=== PATIENT | female | born 1985 | race Caucasian/White ===

== ENCOUNTER 2016-09-25 23:12 | Emergency (ER) | payer OTHER ==
[~2016-09-25] VITALS: Ht 152.4 cm; Wt 98.1 kg
[~2016-09-25 23:12] MED LIST: AMOX500T PO
[2016-09-25 23:18] VITALS: BP 129/86; PULSE 82; RESP 18; TEMP 98.7; O2SAT 100
[2016-09-26 00:50] VITALS: BP 119/70; PULSE 84; RESP 18; O2SAT 100
--- NOTE | 2016-09-26 01:07 | PD ---
HPI Chief Complaint: Abdominal Pain Time Seen by Provider: 00:54 Travel History International Travel<30 days: No Contact w/Intl Traveler<30days: No Traveled to known affect area: No History of Present Illness HPI The patient is a 31-year-old female that complains of left pelvic pain for 2-3 weeks. She found out that she is by home test and by the health department. Her last missed her period was August 01. The pain remains on the left side only and she denies any bleeding. She denies any fever. She is G4, P2, A1. PFSH Past Medical History Diminished Hearing: No Tetanus Vaccination: Unknown Influenza Vaccination: No ?: LMP: jul 28- : 4 Para: 2 Past Surgical History Oral Surgery: Yes (TONGUE SNIP) Social History Alcohol Use: Yes Tobacco Use: No Substance Use: No Allergies-Medications (Allergen,Severity, Reaction): Coded Allergies: Azithromycin (Verified Allergy, Unknown, THROAT SWELLS, 09/26/16) Darvocet-N 100 (Verified Allergy, Unknown, RASH, 09/26/16) Erythromycin (Verified Allergy, Unknown, THROAT SWELLS, 09/26/16) Latex (Verified Allergy, Unknown, SWELLING, 09/26/16) Lortab (Verified Allergy, Unknown, RASH, 09/26/16) Tessalon Perles (Verified Allergy, Unknown, THROAT SWELLS, 09/26/16) Toradol (Verified Allergy, Unknown, RASH, 09/26/16) Tramadol (Verified Allergy, Unknown, RASH, 09/26/16) Reported Meds & Prescriptions Reported Meds & Active Scripts Active Reported ( Vit-Ferrous Fumarate) 1 Tab Tab 1 Tab PO DAILY Review of Systems Except as stated in HPI: all other systems reviewed are Neg Physical Exam Narrative GENERAL: The patient is alert, oriented 3 and slight apparent distress with her left pelvic pain. Her vital signs show blood pressure 129/86 but are otherwise normal for . SKIN: Warm and dry. HEAD: Atraumatic. Normocephalic. EYES: Pupils equal and round. No scleral icterus. No injection or drainage. ENT: No nasal bleeding or discharge. Mucous membranes pink and moist. NECK: Trachea midline. No JVD. CARDIOVASCULAR: Regular rate and rhythm. No murmur appreciated. RESPIRATORY: No accessory muscle use. Clear to auscultation. Breath sounds equal bilaterally. GASTROINTESTINAL: Abdomen soft, with slight tenderness in the left pelvis to direct palpation, nondistended. Hepatic and splenic margins not palpable. No guarding or rebound is present. MUSCULOSKELETAL: No obvious deformities. No clubbing. No cyanosis. No edema. NEUROLOGICAL: Awake and alert. No obvious cranial nerve deficits. Motor grossly within normal limits. Normal speech. PSYCHIATRIC: Appropriate mood and affect; insight and judgment normal. Data Data Last Documented VS Vital Signs Date Time Temp Pulse Resp B/P Pulse Ox O2 Delivery O2 Flow Rate FiO2 09/26/16 03:10 16 09/26/16 03:10 82 140/69 98 Room Air 09/25/16 23:18 98.7 Orders Beta Hcg (Quant/Titer) (09/26/16 01:02) Complete Blood Count With Diff (09/26/16 01:02) Basic Metabolic Panel (Bmp) (09/26/16 01:02) Urinalysis - C+S If Indicated (09/26/16 01:02) Us Pelvis (Ques Preg/Ectopic) (09/26/16 ) Ed Urine Pregnancytest Poc (09/26/16 02:00) Labs Laboratory Tests Test 09/26/16 01:20 White Blood Count 10.6 TH/MM3 Red Blood Count 4.28 MIL/MM3 Hemoglobin 11.3 GM/DL Hematocrit 35.0 % Mean Corpuscular Volume 81.8 FL Mean Corpuscular Hemoglobin 26.4 PG Mean Corpuscular Hemoglobin 32.3 % Concent Red Cell Distribution Width 14.3 % Platelet Count 302 TH/MM3 Mean Platelet Volume 8.2 FL Neutrophils (%) (Auto) 69.6 % Lymphocytes (%) (Auto) 20.0 % Monocytes (%) (Auto) 7.8 % Eosinophils (%) (Auto) 1.1 % Basophils (%) (Auto) 1.5 % Neutrophils # (Auto) 7.4 TH/MM3 Lymphocytes # (Auto) 2.1 TH/MM3 Monocytes # (Auto) 0.8 TH/MM3 Eosinophils # (Auto) 0.1 TH/MM3 Basophils # (Auto) 0.2 TH/MM3 CBC Comment DIFF FINAL Differential Comment Sodium Level 139 MEQ/L Potassium Level 4.0 MEQ/L Chloride Level 103 MEQ/L Carbon Dioxide Level 25.6 MEQ/L Anion Gap 10 MEQ/L Blood Urea Nitrogen 8 MG/DL Creatinine 0.56 MG/DL Estimat Glomerular Filtration 128 ML/MIN Rate Random Glucose 82 MG/DL Calcium Level 8.1 MG/DL Human Chorionic Gonadotropin, 0[address]31 MIU/ML Quant MDM Medical Decision Making Medical Screen Exam Complete: Yes Emergency Medical Condition: Yes Medical Record Reviewed: Yes Interpretation(s) The scfoi-ju-gsee urine test is positive here in emergency department. We have also ordered a beta titer. It is now 0409 and the beta titer is 54,600. The basic metabolic profile shows a calcium 8.1 but is otherwise normal. The CBC is normal except for hemoglobin of 11.3. The ultrasound of the pelvis shows single viable intrauterine gestation with gestational age 8 weeks 4 days and heart rate of 174 bpm. No free fluid is present and the ovaries are normal. Differential Diagnosis Ectopic , ovarian cyst pain, intrauterine , anemia, ligament pain Narrative Course The patient has a normal intrauterine . The patient's pain may be ligament pain. She is given the results of her lab work and she should follow- up with her butt welder. Diagnosis Primary Impression: Intrauterine Additional Impression: Pain of round ligament affecting , antepartum Additional Instructions: Follow-up with your butt welder, this appears to be in normal intrauterine . It is possible he may have ligament pain as the cause of your slight pain on the left. The ovaries appear normal. Med/Other Pt SpecificInfo: No Change to Meds Disposition: 01 DISCHARGE HOME Condition: Stable Shay Winslow MD Sep 26, 2016 01:07
[2016-09-26] MEDS ORDERED: TRICTAB PO (01:21)
[2016-09-26 01:46] LABS: AUTOMATED NEUTROPHIL # 7.4 TH/MM3 (1.8-7.7); BASOPHIL # 0.2 TH/MM3 (0-0.2); BASOPHIL % 1.5 % (0.0-2.0); EOSINOPHIL # 0.1 TH/MM3 (0-0.4); EOSINOPHIL % 1.1 % (0.0-4.0); LYMPHOCYTE # 2.1 TH/MM3 (1.0-4.8); MEAN CELL VOLUME 81.8 FL (80.0-100.0); MEAN CORPUSCULAR HEMOGLOBIN 26.4 PG (27.0-34.0); MEAN CORPUSCULAR HGB CONC 32.3 % (32.0-36.0); MONO % 7.8 % (0.0-8.0); NEUT % 69.6 % (16.0-70.0); PLATELET COUNT 302 TH/MM3 (150-450); RED BLOOD COUNT 4.28 MIL/MM3 (4.00-5.30); RED CELL DISTRIBUTION WIDTH 14.3 % (11.6-17.2); WHITE BLOOD COUNT 10.6 TH/MM3 (4.0-11.0)
[2016-09-26 01:48] LABS: HEMO FLAGS DIFF FINAL
[2016-09-26 01:58] LABS: BICARBONATE 25.6 MEQ/L (21.0-32.0)
[2016-09-26 03:10] VITALS: BP 140/69; PULSE 82; RESP 16; O2SAT 98
--- NOTE | 2016-09-26 03:59 | RADHPO ---
EXAM DATE/TIME: 09/26/2016 02:59 [facility] COMPARISON: No previous studies available for comparison. INDICATIONS : Pelvic pain. LAB(S): Beta-hC MEDICAL HISTORY : . SURGICAL HISTORY : Tongue snip. ENCOUNTER: Initial ACUITY: 3 weeks PAIN SCORE: 6/10 LOCATION: Bilateral pelvis MEASUREMENTS: UTERUS: 10.9 x 7.6 x 6.2 cm ENDOMETRIAL STRIPE: 19 mm RIGHT OVARY: 2.6 x 2.8 x 1.6 cm LEFT OVARY: 2.9 x 3.4 x 1.6 cm FREE FLUID: No CROWN RUMP LENGTH: 2.0 cm = 8 WKS 4 DAYS FHR: 173 BPM FINDINGS: There is a gestational sac within the uterus containing a yolk sac and pole with an estimated g estational age of 8 weeks 4 days based on crown-rump length measurement and 8 weeks 0 days based on m bijan sac diameter. heart rate of 174 beats per minute. There is no free fluid. The ovaries are n ormal. CONCLUSION: 1. Single viable intrauterine gestation is noted as described above. Anuj Ragsdale MD on September 26, 2016 at 3:55 Board Certified Radiologist. This report was verified electronically.
[2016-09-26 04:37] VITALS: BP 121/60
== END 2016-09-26 04:36 | disposition home or self-care (01) ==
LOC: PHED 23:12
DX: O26.899 Other specified pregnancy related conditions, unspecified trimester (principal)
CPT/HCPCS: 76700; 80048; 84702; 84703; 85025

== ENCOUNTER 2017-01-01 14:20 | Emergency (ER) | payer OTHER, MEDICAID ==
[~2017-01-01 14:20] MED LIST changes: -AMOX500T PO; +TRICTAB PO
[2017-01-01 14:49] VITALS: BP 119/58; PULSE 78
[2017-01-01 15:07] VITALS: BP 112/52; PULSE 79
--- NOTE | 2017-01-01 15:18 | PD ---
HPI Chief Complaint Headache Date Seen: Jan 01, 2017 Travel History International Travel<30 Days: No Contact w/Intl Traveler<30Days: No History of Present Illness HPI Patient is a 31 year old at 21-6/7 weeks gestation who presents today for headache. The headache started 5 days ago and is located in the frontal region. It's described as throbbing. She typically gets migraine headaches that are located unilaterally behind her eye, however this headache feels different. She also typically has floaters and is unsure if her floaters now are the same or different than when she is having a migraine. She has also noted occasional swelling in her feet, hands, and face and lower abdominal pain when moving from side to side in bed. She denies any vaginal bleeding or discharge. No gush or leaking of fluid. Positive movement. care with Dr. Maravilla. History Past Medical History Narrative Medical Bipolar Disorder Obstetric History Obstetric History s/p x 2 at term Past Surgical History Surgical History: No Previous Surgery Family History Family History: Negative Social History Alcohol Use: No Tobacco Use: No Substance Abuse: No Allergies-Medications (Allergen,Severity, Reaction): Coded Allergies: Azithromycin (Verified Allergy, Unknown, THROAT SWELLS, 09/26/16) Darvocet-N 100 (Verified Allergy, Unknown, RASH, 09/26/16) Erythromycin (Verified Allergy, Unknown, THROAT SWELLS, 09/26/16) Latex (Verified Allergy, Unknown, SWELLING, 09/26/16) Lortab (Verified Allergy, Unknown, RASH, 09/26/16) Tessalon Perles (Verified Allergy, Unknown, THROAT SWELLS, 09/26/16) Toradol (Verified Allergy, Unknown, RASH, 09/26/16) Tramadol (Verified Allergy, Unknown, RASH, 09/26/16) Home Meds Active Scripts Pqotkthlro-Lkcsfwuyrmevb-Srvjvort (Fioricet)50-300-40 Mg Cap1 Cap PO Q6H PRN ( HEADACHE) #30 CAP Ref 0 Prov:Keyanna Neri MD R2 01/01/17 Promethazine (Phenergan)25 Mg [id number] Mg PO Q6H PRN (NAUSEA OR VOMITING) #30 TAB Ref 0 Prov:Keyanna Neri MD R2 01/01/17 Reported Medications Vit-Ferrous Fumarate ()1 Tab Tab1 Tab PO DAILY #30 TAB Ref 0 09/26/16 Review of Systems Except as stated in HPI: all other systems reviewed are Neg General / Constitutional: No: Fever, Chills Eyes: No: Visual changes HENT: Headaches Respiratory: No: Short of Breath Gastrointestinal: Nausea, Abdominal Pain, No: Vomiting Genitourinary: No: Dysuria, Hematuria, Pelvic Pain, Discharge, Vaginal Bleeding Musculoskeletal: Edema Neurologic: Dizziness, Headache Psychiatric: No: Substance Abuse Physical Exam Narrative GENERAL: Well-nourished, well-developed patient. SKIN: Warm and dry. HEAD: Normocephalic and atraumatic. EYES: No scleral icterus. No injection or drainage. ENT: No nasal drainage noted. Mucous membranes pink. Airway patent. NECK: Supple, trachea midline. No JVD. CARDIOVASCULAR: Regular rate and rhythm without murmurs, gallops, or rubs. RESPIRATORY: Breath sounds equal bilaterally. No accessory muscle use. ABDOMEN/GI: Abdomen soft, mildly tender to palpation in lower abdomen, bowel sounds present, no rebound, no guarding Gravid to 21 weeks size GENITOURINARY: Membranes: intact Uterine Contractions: none FHT's: Category: I Baseline: 147 Reactive: + Variability: moderate Decels: none EXTREMITIES: No cyanosis or edema. BACK: Nontender without obvious deformity. NEUROLOGICAL: Awake and alert. Motor and sensory grossly within normal limits. Normal speech. Data Data Vital Signs Reviewed: Yes Orders Vital Signs (Adult) .ON ADMISSION (01/01/17 14:50) ^ Labor Status (01/01/17 14:50) Urinalysis - C+S If Indicated (01/01/17 14:50) ^ Hydration (01/01/17 14:50) Cbc No Diff, Includes Plts (01/01/17 14:50) Comprehensive Metabolic Panel (01/01/17 14:50) Uric Acid (01/01/17 14:50) MDM Medical Record Reviewed: Yes Narrative Course / MDM 31 year old at 21-6/7 weeks gestation. 1. IUP- Category I tracing, reassuring. 2. Headache- BP stable 119/58, 112/52. Obtain CBC, CMP, uric acid, and UA. Continue to monitor BP. Will give Fioricet for pain. magdalene Sharmaz MS4 dw Dr. Yap and Dr. Shandra Fonseca R1 Addendum: UA significant for 30 protein, reassuring. CBC wnl BP remains stable at 107/52 Discharge home with Fioricet PRN headache and Phenergan PRN nausea. Diagnosis Diagnosis: Primary Impression: Headache Qualified Code: G44.52 - New daily persistent headache Additional Impression: 21 weeks gestation of Disposition: DISCHARGE HOME Condition: Stable Scripts Jaqhwnblgu-Zjjlllznldunr-Dkkzjpjv (Fioricet)50-300-40 Mg Cap1 Cap PO Q6H PRN ( HEADACHE) #30 CAP Ref 0 Prov:Keyanna Neri MD R2 01/01/17 Promethazine (Phenergan)25 Mg [id number] Mg PO Q6H PRN (NAUSEA OR VOMITING) #30 TAB Ref 0 Prov:Keyanna Neri MD R2 01/01/17 Keyanna Neri MD R2 Jan 01, 2017 15:18
[2017-01-01 15:42] VITALS: BP 106/50; PULSE 76
[2017-01-01 15:45] VITALS: BP 119/58; PULSE 78; RESP 16; TEMP 98
[2017-01-01 15:46] VITALS: PULSE 76
[2017-01-01] MEDS ORDERED: BUTA1CAP PO (15:52)
[2017-01-01] MEDS ORDERED: PROM25TA10 PO (15:52)
[2017-01-01 15:56] LABS: HEMATOCRIT 32.7 % (35.0-46.0); MEAN CELL VOLUME 81.2 FL (80.0-100.0); MEAN CORPUSCULAR HEMOGLOBIN 26.6 PG (27.0-34.0); MEAN CORPUSCULAR HGB CONC 32.7 % (32.0-36.0); PLATELET COUNT 272 TH/MM3 (150-450); RED BLOOD COUNT 4.03 MIL/MM3 (4.00-5.30); RED CELL DISTRIBUTION WIDTH 14.5 % (11.6-17.2); REVIEW FLAG FINAL; WHITE BLOOD COUNT 10.6 TH/MM3 (4.0-11.0)
[2017-01-01 16:01] VITALS: BP 107/52; PULSE 73
[2017-01-01 16:03] LABS: BACTERIA, URINE FEW /hpf; BLOOD, URINE NEG (NEG); COMMENT (UR) CULT NOT INDICATED; CULTURE IF INDICATED CULT NOT INDICATED; GLUCOSE,URINE NEG (NEG); KETONE, URINE NEG (NEG); MUCUS URINE MOD /lpf (OCC); NITRITE,URINE NEG (NEG); PH, URINE 5.5 (5.0-8.5); SQUAMOUS EPITHELIAL CELL URINE 4 /hpf (0-5); URINE COLOR YELLOW (YELLW/STRAW)
[2017-01-01] MEDS ORDERED: ACETAMIN 325 MG/BUTALBITAL 50 MG/CAFFEINE 40 MG TAB PO ONE (16:15)
[2017-01-01 16:21] LABS: ALT (GPT) 12 U/L (10-53); ANION GAP 7 MEQ/L (5-15); AST (GOT) 10 U/L (15-37); BICARBONATE 27.1 MEQ/L (21.0-32.0); BLOOD UREA NITROGEN 7 MG/DL (7-18); CHLORIDE 105 MEQ/L (98-107); GLOMERULAR FILTRATION RATE 146 ML/MIN (>89); POTASSIUM 3.5 MEQ/L (3.5-5.1); SODIUM (NA) 139 MEQ/L (136-145); URIC ACID 3.6 MG/DL (2.6-6.0)
[2017-01-01 16:23] LABS: ALKALINE PHOSPHATASE 72 U/L (45-117); TOTAL BILIRUBIN ADULT 0.3 MG/DL (0.2-1.0)
== END 2017-01-01 16:49 | disposition home or self-care (01) ==
LOC: HOBED 14:20
DX: O99.89 Other specified diseases and conditions complicating pregnancy, childbirth and the puerperium (principal); G44.52 New daily persistent headache (NDPH); Z86.59 Personal history of other mental and behavioral disorders; Z3A.21 21 weeks gestation of pregnancy
CPT/HCPCS: 80053; 81001; 84550; 85027; 99284

== ENCOUNTER 2017-02-08 11:39 | Emergency (ER) | payer OTHER, MEDICAID ==
[~2017-02-08] VITALS: Ht 147.3 cm; Wt 100.7 kg
[~2017-02-08 11:39] MED LIST changes: +BUTA1CAP PO; +PROM25TA10 PO
--- NOTE | 2017-02-08 12:25 | PD ---
HPI Chief Complaint Leakage of fluid Date Seen: Feb 08, 2017 Time Seen: 12:00 Travel History International Travel<30 Days: No Contact w/Intl Traveler<30Days: No Known Affected Area: No History of Present Illness HPI Patient is a 31-year-old at 27 weeks and 2 days who presents with possible leakage of fluid. She falls with Dr. Maravilla. She reports that she felt a gush of fluid this morning around 7:20 AM. She went to work and Feeling trickling of fluid that increased with squatting. She denied any contractions or any vaginal bleeding. She reports movement. She denies any pain with urination, fever, chills. Para: 2 : 3 History Past Medical History Narrative Medical Patient reports a history of migraines, depression, anxiety, mood disorder. Obstetric History Obstetric History Patient is a . She reports a history of 2 uncomplicated full-term vaginal deliveries with which she had elevated blood pressure last 2 weeks of but did not require treatment. Past Surgical History Surgical History: No Previous Surgery Family History Narrative Family History She reports a family history of hypertension and heart disease. Social History Narrative Social History Patient reports living at home with her mother, father, grandmother mother, aunt , cousin, brother, 2 children, an 8-year-old girl and a 7-year-old boy. Alcohol Use: No Tobacco Use: No Substance Abuse: No Allergies-Medications (Allergen,Severity, Reaction): Coded Allergies: Azithromycin (Verified Allergy, Unknown, THROAT SWELLS, 09/26/16) Darvocet-N 100 (Verified Allergy, Unknown, RASH, 09/26/16) Erythromycin (Verified Allergy, Unknown, THROAT SWELLS, 09/26/16) Latex (Verified Allergy, Unknown, SWELLING, 09/26/16) Lortab (Verified Allergy, Unknown, RASH, 09/26/16) Tessalon Perles (Verified Allergy, Unknown, THROAT SWELLS, 09/26/16) Toradol (Verified Allergy, Unknown, RASH, 09/26/16) Tramadol (Verified Allergy, Unknown, RASH, 09/26/16) Home Meds Active Scripts Mihvulwyfd-Xnleveedbjmtx-Duqainsi (Fioricet)50-300-40 Mg Cap1 Cap PO Q6H PRN ( HEADACHE) #30 CAP Ref 0 Prov:Keyanna Neri MD R3 01/01/17 Promethazine (Phenergan)25 Mg Fgmroc26 Mg PO Q6H PRN (NAUSEA OR VOMITING) #30 TAB Ref 0 Prov:Keyanna Neir MD R3 01/01/17 Reported Medications Vit-Ferrous Fumarate ()1 Tab Tab1 Tab PO DAILY #30 TAB Ref 0 09/26/16 Review of Systems General / Constitutional: No: Fever, Weight Gain, Chills, Other Genitourinary: No: Dysuria Physical Exam 102/55, 79-83, 16, 98.7, 0 pain Narrative GENERAL: Well-nourished, well-developed patient. SKIN: Warm and dry. HEAD: Normocephalic and atraumatic. EYES: No scleral icterus. No injection or drainage. ENT: No nasal drainage noted. Mucous membranes pink. Airway patent. NECK: Supple, trachea midline. No JVD. CARDIOVASCULAR: Regular rate and rhythm without murmurs, gallops, or rubs. RESPIRATORY: Breath sounds equal bilaterally. No accessory muscle use. ABDOMEN/GI: Abdomen soft, non-tender, bowel sounds present, no rebound, no guarding Gravid to 27 weeks size GENITOURINARY: Uterine Contractions: none FHT's: Category: Cat I Baseline: 140 Reactive: reactive Variability: moderate Decels: One variable deceleration noted EXTREMITIES: No cyanosis or edema. BACK: Nontender without obvious deformity. No CVA tenderness. NEUROLOGICAL: Awake and alert. Motor and sensory grossly within normal limits. Five out of 5 muscle strength in all muscle groups. Normal speech. Data Data Vital Signs Reviewed: Yes MDM Plan Patient is a 31-year-old at 27 weeks and 2 days who presents with possible leakage of fluid. Examination is negative. Urine dipstick remarkable for elevated specific gravity and positive ketones. 1. Ruled out leakage of fluid with negative Amnisure. Category 1 tracing reassuring. No contractions noted on tocometry. Patient refused speculum exam. Urine dipstick remarkable for elevated specific gravity and positive ketones. Recommended increased by mouth hydration. Discussed indications to return to labor and delivery Discharge home d/w Dr. Torres. Diagnosis Diagnosis: Primary Impression: with 27 completed weeks gestation Additional Impression: 27 weeks gestation of Ruled Out: Rupture, membranes, premature Disposition: DISCHARGE HOME Condition: Good Dell David MD R2 Feb 08, 2017 12:25
== END 2017-02-08 12:38 | disposition home or self-care (01) ==
LOC: HOBED 11:39
DX: O26.892 Other specified pregnancy related conditions, second trimester (principal); Z3A.27 27 weeks gestation of pregnancy
CPT/HCPCS: 84112; 99282

== ENCOUNTER 2017-02-16 17:45 | Emergency (ER) | payer OTHER, MEDICAID ==
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
== END 2017-02-16 20:35 | disposition home or self-care (01) ==
LOC: HOBED 17:45
DX: Z04.1 Encounter for examination and observation following transport accident (principal); Z34.93 Encounter for supervision of normal pregnancy, unspecified, third trimester; Z3A.28 28 weeks gestation of pregnancy
CPT/HCPCS: 99281

== ENCOUNTER 2017-02-22 22:55 | Emergency (ER) | payer OTHER, MEDICAID ==
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
== END 2017-02-23 00:10 | disposition home or self-care (01) ==
LOC: HOBED 22:55
DX: O47.03 False labor before 37 completed weeks of gestation, third trimester (principal); O26.853 Spotting complicating pregnancy, third trimester; Z3A.29 29 weeks gestation of pregnancy
CPT/HCPCS: 99284

== ENCOUNTER 2017-05-03 11:29 | Emergency (ER) | payer OTHER, MEDICAID ==
--- NOTE | 2017-05-03 12:29 | PD ---
HPI Chief Complaint Contractions Date Seen: May 03, 2017 Time Seen: 12:20 Travel History International Travel<30 Days: No Contact w/Intl Traveler<30Days: No Known Affected Area: No History of Present Illness HPI This patient is a 31-year-old white female at [address] Maravilla for care presents planning of contractions since early this morning. She denies bleeding or rupture the membranes. Baby is active, heart rate tracing is reactive, and she is having a small contractions every 3-4 minutes. Weeks Gestation: 39 Para: 2 : 3 History Obstetric History Obstetric History 2 vaginal deliveries Social History Alcohol Use: No Tobacco Use: No Substance Abuse: No Allergies-Medications (Allergen,Severity, Reaction): Coded Allergies: acetaminophen (Unverified Allergy, Unknown, RASH, 02/19/17) azithromycin (Unverified Allergy, Unknown, THROAT SWELLS, 02/19/17) benzonatate (Unverified Allergy, Unknown, THROAT SWELLS, 02/19/17) erythromycin base (Unverified Allergy, Unknown, THROAT SWELLS, 02/19/17) hydrocodone (Unverified Allergy, Unknown, RASH, 02/19/17) ketorolac (Unverified Allergy, Unknown, RASH, 02/19/17) latex (Unverified Allergy, Unknown, SWELLING, 02/19/17) propoxyphene (Unverified Allergy, Unknown, RASH, 02/19/17) tramadol (Unverified Allergy, Unknown, RASH, 02/19/17) Home Meds Active Scripts Khocznesfd-Ulklykatfuoms-Htjswdcg (Fioricet) 50-300-40 Mg Cap, 1 CAP PO Q6H Y for HEADACHE, #30 CAP 0 Refills Prov:Keyanna Neri MD, R3 01/01/17 Promethazine (Phenergan) 25 Mg Tablet, 25 MG PO Q6H Y for NAUSEA OR VOMITING, # 30 TAB 0 Refills Prov:Keyanna Neri MD, R3 01/01/17 Reported Medications Vit-Ferrous Fumarate () 1 Tab Tab, 1 TAB PO DAILY for Nutritional Supplement, #30 TAB 0 Refills 09/26/16 Review of Systems General / Constitutional: No: Fever, Weight Gain, Chills, Other Eyes: No: Diploplia, Blurred Vision, Visual changes, Pain, Photophobia HENT: No: Headaches, Vertigo, Lightheadedness Cardiovascular: No: Irregular Rhythm, Chest Pain or Discomfort, Palpitations, Tachycardia, Syncope, Varicosities, Edema, Cyanosis Respiratory: No: Cough, Short of Breath, Other Gastrointestinal: Abdominal Pain, No: Nausea, Vomiting, Diarrhea Genitourinary: No: Decreased Urinary Output, Oliguria Musculoskeletal: No: Limited ROM, Weakness, Cramping, Edema, Pain Skin: No Rash, No Itching, No Dryness, No Lumps, No Change in Pigmentation, No Change in Nails, No Alopecia, No Lesions Neurologic: No: Weakness, Dizziness, Syncope, Focal Abnormalities, Coordination Problem, Headache, Slurred Speech, Seizures Psychiatric: No: Depression, Suicidal Ideations, Homicidal Ideation Endocrine: No: Heat Intolerance, Cold Intolerance, Polydipsia, Polyuria, Other Physical Exam Narrative GENERAL: Well-nourished, well-developed patient. SKIN: Warm and dry. HEAD: Normocephalic and atraumatic. EYES: No scleral icterus. No injection or drainage. ENT: No nasal drainage noted. Mucous membranes pink. Airway patent. NECK: Supple, trachea midline. No JVD. CARDIOVASCULAR: Regular rate and rhythm without murmurs, gallops, or rubs. RESPIRATORY: Breath sounds equal bilaterally. No accessory muscle use. BREASTS: Bilateral exam showed no masses , no retractions, no nipple discharge. ABDOMEN/GI: Abdomen soft, non-tender, bowel sounds present, no rebound, no guarding Gravid to [-39] weeks size Fundal Height: [39-] GENITOURINARY: External Genitalia: intact and normal in appearance BUS glands: [-] Cervix: [mid-] Dilatation: [-1] Effacement: [50-] Station: [-3] Presentation: [vtx-] Membranes: [intact ] Uterine Contractions: [q 3-4 min-] FHT's: Category: [-1] Baseline: [133-] Reactive: [yes-] Variability: [mod-] Decels: [0-] EXTREMITIES: No cyanosis or edema. BACK: Nontender without obvious deformity. No CVA tenderness. NEUROLOGICAL: Awake and alert. Motor and sensory grossly within normal limits. Five out of 5 muscle strength in all muscle groups. Normal speech. Data Data Labs Urine dip negative moderate leukocytes MDM Interpretation(s) Patient is 31-year-old white female 39 weeks presents planning of crampy abdominal pain and contractions. She is saturnino every 3-4 minutes mildly she says they are uncomfortable but not very painful . heart rate tracing is reactive contractions are noted on the monitor. Her cervix is 1 cm 50% -3 vertex, the patient is not in active labor at this time Plan Plan to discharge patient home, she is to increase bed rest, Tylenol liberally for pain, increase her fluid intake for hydration, and heating pad or hot bath for symptom relief. She is to follow-up with her OB provider in the usual fashion or return here for worsening symptoms contractions etc. Diagnosis Diagnosis: Primary Impression: False labor after 37 weeks of gestation without delivery Disposition: 01 DISCHARGE HOME Condition: Stable Elder Yap II, MD May 03, 2017 12:29
[2017-05-03 13:03] LABS: BACTERIA, URINE MANY /hpf; BILIRUBIN, URINE NEG (NEG); BLOOD, URINE TRACE (NEG); GLUCOSE,URINE NEG (NEG); HYALINE CAST, URINE 2 /lpf (RARE); KETONE, URINE NEG (NEG); MUCUS URINE FEW /lpf (OCC); NITRITE,URINE NEG (NEG); PH, URINE 6.5 (5.0-8.5); SQUAMOUS EPITHELIAL CELL URINE 14 /hpf (0-5); TRANSITIONAL EPI CELLS, URINE <1 /hpf; URINE COLOR YELLOW (YELLW/STRAW); URINE LEUKOCYTE ESTERASE LARGE (NEG)
== END 2017-05-03 13:59 | disposition home or self-care (01) ==
LOC: HOBED 11:29
DX: O47.1 False labor at or after 37 completed weeks of gestation (principal); Z3A.39 39 weeks gestation of pregnancy
CPT/HCPCS: 59025; 81001; 87086

== ENCOUNTER 2017-05-07 21:08 | Emergency (ER) | payer OTHER, MEDICAID ==
--- NOTE | 2017-05-07 21:52 | PD ---
HPI Chief Complaint Contractions Date Seen: May 07, 2017 Time Seen: 21:45 Travel History International Travel<30 Days: No Contact w/Intl Traveler<30Days: No Known Affected Area: No History of Present Illness HPI Patient is 32-year-old white female 40 weeks tomorrow who presents complaining of contraction pain. She sees Dr. Maravilla for care, she denies bleeding or rupture the membranes. heart rate tracing is reactive. Not seeing contractions on the monitor the patient states she is having them there is not yet picked up and that there strong doubling her over and the just got worse and worse since I saw her Saturday 4 days ago at that time. Her cervix is 150 and -3. She was checked in the office today and was noted to be 3 cm. And then tonight on OB ED she's 3 cm 80% -3 Weeks Gestation: 40 Para: 2 : 3 History Obstetric History Obstetric History 2 vaginal deliveries Social History Alcohol Use: No Tobacco Use: No Substance Abuse: No Allergies-Medications (Allergen,Severity, Reaction): Coded Allergies: acetaminophen (Unverified Allergy, Unknown, RASH, 02/19/17) azithromycin (Unverified Allergy, Unknown, THROAT SWELLS, 02/19/17) benzonatate (Unverified Allergy, Unknown, THROAT SWELLS, 02/19/17) erythromycin base (Unverified Allergy, Unknown, THROAT SWELLS, 02/19/17) hydrocodone (Unverified Allergy, Unknown, RASH, 02/19/17) ketorolac (Unverified Allergy, Unknown, RASH, 02/19/17) latex (Unverified Allergy, Unknown, SWELLING, 02/19/17) propoxyphene (Unverified Allergy, Unknown, RASH, 02/19/17) tramadol (Unverified Allergy, Unknown, RASH, 02/19/17) Home Meds Active Scripts Qnmtstvxnu-Glsnmbsglzptr-Kpdoeedf (Fioricet) 50-300-40 Mg Cap, 1 CAP PO Q6H Y for HEADACHE, #30 CAP 0 Refills Prov:Keyanna Neri MD, R3 01/01/17 Promethazine (Phenergan) 25 Mg Tablet, 25 MG PO Q6H Y for NAUSEA OR VOMITING, # 30 TAB 0 Refills Prov:Keyanna Neri MD, R3 01/01/17 Reported Medications Vit-Ferrous Fumarate () 1 Tab Tab, 1 TAB PO DAILY for Nutritional Supplement, #30 TAB 0 Refills 09/26/16 Review of Systems General / Constitutional: No: Fever, Weight Gain, Chills, Other Eyes: No: Diploplia, Blurred Vision, Visual changes, Pain, Photophobia HENT: No: Headaches, Vertigo, Lightheadedness Cardiovascular: No: Irregular Rhythm, Chest Pain or Discomfort, Palpitations, Tachycardia, Syncope, Varicosities, Edema, Cyanosis Respiratory: No: Cough, Short of Breath, Other Gastrointestinal: Abdominal Pain, No: Nausea, Vomiting, Diarrhea Genitourinary: No: Decreased Urinary Output, Oliguria Musculoskeletal: No: Limited ROM, Weakness, Cramping, Edema, Pain Skin: No Rash, No Itching, No Dryness, No Lumps, No Change in Pigmentation, No Change in Nails, No Alopecia, No Lesions Neurologic: No: Weakness, Dizziness, Syncope, Focal Abnormalities, Coordination Problem, Headache, Slurred Speech, Seizures Psychiatric: No: Depression, Suicidal Ideations, Homicidal Ideation Endocrine: No: Heat Intolerance, Cold Intolerance, Polydipsia, Polyuria, Other Physical Exam Narrative GENERAL: Well-nourished, well-developed obese patient. SKIN: Warm and dry. HEAD: Normocephalic and atraumatic. EYES: No scleral icterus. No injection or drainage. ENT: No nasal drainage noted. Mucous membranes pink. Airway patent. NECK: Supple, trachea midline. No JVD. CARDIOVASCULAR: Regular rate and rhythm without murmurs, gallops, or rubs. RESPIRATORY: Breath sounds equal bilaterally. No accessory muscle use. BREASTS: Bilateral exam showed no masses , no retractions, no nipple discharge. ABDOMEN/GI: Abdomen soft, non-tender, bowel sounds present, no rebound, no guarding Gravid to [-40] weeks size Fundal Height: [40-] GENITOURINARY: External Genitalia: intact and normal in appearance BUS glands: [-] Cervix: [-] Dilatation: [3-] Effacement: [80-] Station: [-3] Presentation: [-vtx] Membranes: [intact ] Uterine Contractions: [none seen-] FHT's: Category: [1-] Baseline: 133[-] Reactive: [yes-] Variability: [mod-] Decels: [0-] EXTREMITIES: No cyanosis or edema. BACK: Nontender without obvious deformity. No CVA tenderness. NEUROLOGICAL: Awake and alert. Motor and sensory grossly within normal limits. Five out of 5 muscle strength in all muscle groups. Normal speech. MDM Interpretation(s) Patient is 32-year-old white female at 40 weeks tomorrow presents complaining of contractions. Denies bleeding or rubs or murmurs. heart tracing is reactive. No contractions seen on the monitor. Patient is obese however it may not be taken about the patient stated says they're not being picked up that she's feeling them and they are strong. Cervix is 3/80 and -3 Plan Plan to continue to observe patient to see if there is any cervical change May treat pain with pain medication as needed. If no contractions seen and no cervical change noted that she'll be discharged home Diagnosis Diagnosis: Primary Impression: Uterine contractions during Disposition: 01 DISCHARGE HOME Condition: Stable Elder Yap II, MD May 07, 2017 21:52
== END 2017-05-07 22:50 | disposition home or self-care (01) ==
LOC: HOBED 21:08
DX: O47.1 False labor at or after 37 completed weeks of gestation (principal); Z3A.40 40 weeks gestation of pregnancy
CPT/HCPCS: 59025; 96372; 99284; J3010

== ENCOUNTER 2017-05-08 02:22 | Inpatient (IN) | payer OTHER, MEDICAID ==
[2017-05-08] VITALS (61 sets, daily range): BP systolic 93–145; BP diastolic 46–84; PULSE 75–172; RESP 16–22; TEMP 98–98.6
[2017-05-08] MEDS ORDERED: LACTATED RINGER'S 1000 ML INJ 1,000 ML IV PRN (02:49)
--- NOTE | 2017-05-08 02:49 | HHI.HP ---
History & Physical H&P Patient Name: Maria Luz Barnett Unit Number: [id number] Date of : 1985 Patient Status: Departed Emergency Room Attending Doctor: Elder Yap II, MD HPI HPI Chief Complaint Contractions Date Seen: May 08, 2017 Time Seen: 024 Travel History International Travel<30 Days: No Contact w/Intl Traveler<30Days: No Known Affected Area: No History of Present Illness HPI Patient is 32-year-old white female 40 weeks tomorrow who presents complaining of contraction pain. She sees Dr. Maravilla for care, she denies bleeding or rupture the membranes. heart rate tracing is reactive. Not seeing contractions on the monitor the patient states she is having them there is not yet picked up and that there strong doubling her over and the just got worse and worse since I saw her Saturday 4 days ago at that time. Her cervix is 150 and -3. She was checked in the office today and was noted to be 3 cm. And then tonight on OB ED she's 4cm 90% -3 Weeks Gestation: 40 Para: 2 : 3 History (Limited) History Obstetric History Obstetric History 2 vaginal deliveries Social History Alcohol Use: No Tobacco Use: No Substance Abuse: No Allergies-Medications Allergies-Medications (Allergen,Severity, Reaction): Coded Allergies: acetaminophen (Unverified Allergy, Unknown, RASH, 02/19/17) azithromycin (Unverified Allergy, Unknown, THROAT SWELLS, 02/19/17) benzonatate (Unverified Allergy, Unknown, THROAT SWELLS, 02/19/17) erythromycin base (Unverified Allergy, Unknown, THROAT SWELLS, 02/19/17) hydrocodone (Unverified Allergy, Unknown, RASH, 02/19/17) ketorolac (Unverified Allergy, Unknown, RASH, 02/19/17) latex (Unverified Allergy, Unknown, SWELLING, 02/19/17) propoxyphene (Unverified Allergy, Unknown, RASH, 02/19/17) tramadol (Unverified Allergy, Unknown, RASH, 02/19/17) Home Meds Active Scripts Bacnrrhdiu-Npzgzixdiwlrq-Sgxkmxld (Fioricet) 50-300-40 Mg Cap, 1 CAP PO Q6H Y for HEADACHE, #30 CAP 0 Refills Prov:Keyanna Neri MD, R3 01/01/17 Promethazine (Phenergan) 25 Mg Tablet, 25 MG PO Q6H Y for NAUSEA OR VOMITING, # 30 TAB 0 Refills Prov:Keyanna Neri MD, R3 01/01/17 Reported Medications Vit-Ferrous Fumarate () 1 Tab Tab, 1 TAB PO DAILY for Nutritional Supplement, #30 TAB 0 Refills 09/26/16 ROS Review of Systems General / Constitutional: No: Fever, Weight Gain, Chills, Other Eyes: No: Diploplia, Blurred Vision, Visual changes, Pain, Photophobia HENT: No: Headaches, Vertigo, Lightheadedness Cardiovascular: No: Irregular Rhythm, Chest Pain or Discomfort, Palpitations, Tachycardia, Syncope, Varicosities, Edema, Cyanosis Respiratory: No: Cough, Short of Breath, Other Gastrointestinal: Abdominal Pain, No: Nausea, Vomiting, Diarrhea Genitourinary: No: Decreased Urinary Output, Oliguria Musculoskeletal: No: Limited ROM, Weakness, Cramping, Edema, Pain Skin: No Rash, No Itching, No Dryness, No Lumps, No Change in Pigmentation, No Change in Nails, No Alopecia, No Lesions Neurologic: No: Weakness, Dizziness, Syncope, Focal Abnormalities, Coordination Problem, Headache, Slurred Speech, Seizures Psychiatric: No: Depression, Suicidal Ideations, Homicidal Ideation Endocrine: No: Heat Intolerance, Cold Intolerance, Polydipsia, Polyuria, Other Physical Exam Physical Exam Narrative GENERAL: Well-nourished, well-developed obese patient. SKIN: Warm and dry. HEAD: Normocephalic and atraumatic. EYES: No scleral icterus. No injection or drainage. ENT: No nasal drainage noted. Mucous membranes pink. Airway patent. NECK: Supple, trachea midline. No JVD. CARDIOVASCULAR: Regular rate and rhythm without murmurs, gallops, or rubs. RESPIRATORY: Breath sounds equal bilaterally. No accessory muscle use. BREASTS: Bilateral exam showed no masses , no retractions, no nipple discharge. ABDOMEN/GI: Abdomen soft, non-tender, bowel sounds present, no rebound, no guarding Gravid to [-40] weeks size Fundal Height: [40-] GENITOURINARY: External Genitalia: intact and normal in appearance BUS glands: [-] Cervix: [-] Dilatation: [ 4-] Effacement: [90-] Station: [-3] Presentation: [-vtx] Membranes: [intact ] Uterine Contractions: [none seen-] FHT's: Category: [1-] Baseline: 133[-] Reactive: [yes-] Variability: [mod-] Decels: [0-] EXTREMITIES: No cyanosis or edema. BACK: Nontender without obvious deformity. No CVA tenderness. NEUROLOGICAL: Awake and alert. Motor and sensory grossly within normal limits. Five out of 5 muscle strength in all muscle groups. Normal speech. Data Data MDM MDM Interpretation(s) Patient is 32-year-old white female at 40 weeks tomorrow presents complaining of contractions. Denies bleeding or rubs or murmurs. heart tracing is reactive. No contractions seen on the monitor. Patient is obese however it may not be taken about the patient stated says they're not being picked up that she's feeling them and they are strong. Cervix is 4/90 and -3 Plan Admit for labor management Diagnosis Diagnosis: Primary Impression: Uterine contractions during Disposition: Admit Condition: Stable Elder Yap II, MD May 08, 2017 0245 Elder Yap II, MD May 08, 2017 02:49
[2017-05-08] MEDS ORDERED: LIDOCAINE HCL 1% 50 ML VIAL INFIL PRN (03:00)
[2017-05-08] MEDS ORDERED: OXYTOCIN 30 UNITS-500ML PREMIX 500 ML IV ONE ×2 (03:00→14:00)
[2017-05-08] MEDS ORDERED: PENICILLIN G POTASSIUM INJ 5,000,000 UNITS in SODIUM CHLORIDE 0.9% INJ 100 ML IV ONE (03:00)
[2017-05-08] MEDS ORDERED: CITRIC ACID-SODIUM CITRATE LIQ 30 ML UDC PO SCH (03:00)
[2017-05-08] MEDS ORDERED: MINERAL OIL 10 ML VIAL TOPICAL PRN (03:00)
[2017-05-08] MEDS ORDERED: LIDOCAINE HCL 1% 50 ML VIAL I-DERMAL PRN (03:00)
[2017-05-08] MEDS ORDERED: SODIUM CHLORID 0.9% 500 ML INJ 500 ML IV PRN (03:00)
[2017-05-08] MEDS ORDERED: SODIUM CHLOR 0.9% 1000 ML INJ 1,000 ML IV PRN (03:09)
[2017-05-08] MEDS: LACTATED RINGER'S 1000 ML INJ 1,000 ML IV SCH ×3 (03:10→05:11)
[2017-05-08 03:32] LABS: AUTOMATED NEUTROPHIL # 9.7 TH/MM3 (1.8-7.7); BASOPHIL % 0.4 % (0.0-2.0); EOSINOPHIL # 0.2 TH/MM3 (0-0.4); EOSINOPHIL % 1.5 % (0.0-4.0); HEMATOCRIT 33.2 % (35.0-46.0); HEMOGLOBIN 10.8 GM/DL (11.6-15.3); LYMPH % 12.7 % (9.0-44.0); LYMPHOCYTE # 1.6 TH/MM3 (1.0-4.8); MEAN CELL VOLUME 77.6 FL (80.0-100.0); MEAN CORPUSCULAR HEMOGLOBIN 25.2 PG (27.0-34.0); MEAN CORPUSCULAR HGB CONC 32.5 % (32.0-36.0); MONO % 7.3 % (0.0-8.0); MONOCYTE # 0.9 TH/MM3 (0-0.9); NEUT % 78.1 % (16.0-70.0); PLATELET COUNT 286 TH/MM3 (150-450); RED BLOOD COUNT 4.28 MIL/MM3 (4.00-5.30); RED CELL DISTRIBUTION WIDTH 15.6 % (11.6-17.2); WHITE BLOOD COUNT 12.4 TH/MM3 (4.0-11.0)
[2017-05-08 03:32] LABS: BILIRUBIN, URINE NEG (NEG); GLUCOSE,URINE NEG (NEG); KETONE, URINE NEG (NEG); NITRITE,URINE NEG (NEG); URINE COLOR YELLOW (YELLW/STRAW); URINE LEUKOCYTE ESTERASE NEG (NEG)
[2017-05-08 03:33] LABS: BLOOD, URINE TRACE (NEG)
[2017-05-08] MEDS ORDERED: ePHEDrine/NS 25 MG/5 ML SYR ONE (03:36)
[2017-05-08] MEDS ORDERED: fentaNYL 2MCG-BUPIV 0.125% INJ 100 ML ONE (03:36)
[2017-05-08 03:40] LABS: BACTERIA, URINE OCC /hpf; MUCUS URINE FEW /lpf (OCC); SQUAMOUS EPITHELIAL CELL URINE 3 /hpf (0-5)
[2017-05-08] MEDS ORDERED: DO NOT ADMINISTER ANTICOAGULANTS PRN (06:15)
[2017-05-08] MEDS ORDERED: fentaNYL 2MCG-BUPIV 0.125% 100 ML EPIDURAL SCH (06:15)
[2017-05-08] MEDS ORDERED: NO SYSTEM NARCOTICS PRN (06:15)
[2017-05-08] MEDS ORDERED: ePHEDrine/NS 25 MG/5 ML SYR IV PUSH PRN (06:15)
[2017-05-08] MEDS ORDERED: PENICILLIN G POTASSIUM INJ 2,500,000 UNITS in SODIUM CHLORIDE 0.9% INJ 100 ML IV SCH (07:00)
--- NOTE | 2017-05-08 09:23 | PD.OB.DELI ---
Weeks gestation: 40 Gest age assessed date: May 08, 2017 Gest age assessed time: 23:00 Pt started active labor?: Yes Medical induction of labor?: No Artificial rupture of membrane: No Anesthesia: Epidural Episiotomy: None Vaginal Delivery: Normal, Spontaneous Presentation: Occiput anterior Nuchal Cord: x1 Delayed cord clamping (45 sec): No (meconium-stained fluids ) Infant: Male Delivery date: May 08, 2017 Delivery time: 09:10 One Minute : 8 Five Minute : 9 Weight: 2885g Placenta: Spontaneous delivery Laceration: No lacerations Additional Information , at 40 weeks, nuchal cord x1, GBS positive treated with PCN x2 Aparna Cosby MD R1 May 08, 2017 09:23
[2017-05-08] MEDS ORDERED: WITCH HAZEL 50%/GLYCERIN 12.5% 40 PAD JAR TOPICAL PRN (09:30)
[2017-05-08] MEDS ORDERED: SODIUM CHLORIDE 0.9% FLUSH 10 ML FLUSH IV FLUSH PRN (09:30)
[2017-05-08] MEDS ORDERED: oxyCODONE/ACETAMINOPHEN 5 MG/325 MG TAB PO PRN (09:30)
[2017-05-08] MEDS ORDERED: BENZOCAINE 20% TOPICAL SPRAY 60 ML CAN TOPICAL PRN (09:30)
[2017-05-08] MEDS ORDERED: ONDANSETRON ODT 4 MG TAB PO PRN (09:30)
[2017-05-08] MEDS ORDERED: ALUMINUM/MAGNESIUM/SIMETH 30 ML CUP PO PRN (09:30)
[2017-05-08] MEDS ORDERED: ZOLPIDEM TARTRATE 5 MG TAB PO PRN (09:30)
[2017-05-08] MEDS ORDERED: SODIUM CHLORIDE 0.9% FLUSH 10 ML FLUSH IV FLUSH SCH (11:00)
[2017-05-08] MEDS ORDERED: MEASLES, MUMPS, RUBELLA VACCINE 0.5 ML VIAL SQ ONE (16:00)
[2017-05-08] MEDS ORDERED: DIPHTH/TETANUS/ACEL PERTUSSIS (BOOSTER) 0.5 ML VIAL/PFS IM ONE (16:00)
[2017-05-08] MEDS: DOCUSATE SODIUM 50 MG/SENNA 8.6 MG TAB PO PRN (16:17)
[2017-05-08] MEDS: IBUPROFEN 600 MG TAB PO PRN ×2 (16:17→23:53)
[2017-05-08] MEDS: ACETAMINOPHEN 325 MG TAB PO PRN (16:17)
[2017-05-08] MEDS: oxyCODONE/ACETAMINOPHEN 5 MG/325 MG TAB PO PRN (20:43)
[2017-05-09] MEDS: IBUPROFEN 600 MG TAB PO PRN ×3 (03:59→22:56)
[2017-05-09] MEDS: oxyCODONE/ACETAMINOPHEN 5 MG/325 MG TAB PO PRN ×2 (04:00→15:29)
[2017-05-09 08:08] VITALS: BP 105/74; PULSE 69; RESP 14; TEMP 98.1
--- NOTE | 2017-05-09 13:40 | HHI.OB ---
Subjective Post Day: 1 Remarks Doing well Pain is well controlled and bleeding is normal Feeling well and ready to go home. baby needs to stay. Objective Vitals/I&O Vital Signs Date Time Temp Pulse Resp B/P (MAP) Pulse Ox O2 Delivery O2 Flow Rate FiO2 05/09/17 08:08 98.1 69 14 105/74 (84) 05/08/17 19:30 98.0 80 16 111/70 (84) Objective Remarks GENERAL: Well-nourished, well-developed patient. CARDIOVASCULAR: Regular rate and rhythm without murmurs, gallops, or rubs. RESPIRATORY: Breath sounds equal bilaterally. No accessory muscle use. ABDOMEN/GI: Abdomen soft, non-tender. Fundus: Firm, non-tender at umbilicus. GENITOURINARY: Light to moderate bleeding. EXTREMITIES: No cyanosis or edema, non-tender, without signs of DVT. Medications and IVs Current Medications Medications (Trade) Dose Ordered Sig/Dany Route Start Time Stop Time Status Last Admin (NS Flush) 2 ml BID IV FLUSH 05/08/17 11:00 (NS Flush) 2 ml UNSCH PRN IV FLUSH 05/08/17 09:30 (Tylenol) 650 mg Q4H PRN PO 05/08/17 09:30 05/08/17 16:17 (Motrin) 600 mg Q6H PRN PO 05/08/17 09:30 05/09/17 12:22 (Percocet 5-325 Mg) 1 tab Q4H PRN PO 05/08/17 09:30 05/09/17 04:00 (Percocet 5-325 Mg) 2 tab Q4H PRN PO 05/08/17 09:30 (Americaine 20% Top Spr) 1 spray Q4H PRN TOPICAL 05/08/17 09:30 (Tucks Pads) 1 applic QID PRN TOPICAL 05/08/17 09:30 (Radha-Colace) 2 tab Q12H PRN PO 05/08/17 09:30 05/08/17 16:17 (Ambien) 5 mg HS PRN PO 05/08/17 09:30 (Mag-Al Plus Susp Liq) 15 ml Q8H PRN PO 05/08/17 09:30 (Zofran Odt) 4 mg Q6H PRN PO 05/08/17 09:30 Assessment/Plan Assessment and Plan POD#1 Doing well Home tomorrow. Radha Maravilla MD May 09, 2017 13:40
[2017-05-09] MEDS ORDERED: OXYC1TAB63 PO (13:54)
[2017-05-09] MEDS ORDERED: IBUP-232 PO (13:54)
--- NOTE | 2017-05-09 13:55 | HHI.DCPOC ---
Discharge Care Plan Diagnosis: (1) Vaginal delivery Report Symptoms to Your Doctor -Temperature above 100.5 degrees -Redness, of incision or excessive or foul smelling drainage -Unusual pain or calf pain -Increased vaginal bleeding -Painful or difficulty urinating -Feelings of extreme sadness or anxiety after 2 weeks Goals to Promote Your Health * To prevent worsening of your condition and complications * To maintain your health at the optimal level Directions to Meet Your Goals Take your medications as prescribed Follow your dietary instruction Follow activity as directed Ensure plenty of rest for recovery Drink fluids for hydration Keep your appointments as scheduled Take your immunizations and boosters as scheduled If your symptoms worsen call your PCP, if no PCP go to Urgent Care Center or Emergency Room Smoking is Dangerous to Your Health. Avoid second hand smoke Call the 24-hour crisis hotline for domestic abuse at Radha Maravilla MD May 09, 2017 13:55
--- NOTE | 2017-05-09 13:55 | HHI.DCPOC ---
Discharge Care Plan Diagnosis: (1) Vaginal delivery Report Symptoms to Your Doctor -Temperature above 100.5 degrees -Redness, of incision or excessive or foul smelling drainage -Unusual pain or calf pain -Increased vaginal bleeding -Painful or difficulty urinating -Feelings of extreme sadness or anxiety after 2 weeks Goals to Promote Your Health * To prevent worsening of your condition and complications * To maintain your health at the optimal level Directions to Meet Your Goals Take your medications as prescribed Follow your dietary instruction Follow activity as directed Ensure plenty of rest for recovery Drink fluids for hydration Keep your appointments as scheduled Take your immunizations and boosters as scheduled If your symptoms worsen call your PCP, if no PCP go to Urgent Care Center or Emergency Room Smoking is Dangerous to Your Health. Avoid second hand smoke Call the 24-hour crisis hotline for domestic abuse at Radha Maravilla MD May 09, 2017 13:55
--- NOTE | 2017-05-09 13:55 | HHI.DCPOC ---
Discharge Care Plan Diagnosis: (1) Vaginal delivery Report Symptoms to Your Doctor -Temperature above 100.5 degrees -Redness, of incision or excessive or foul smelling drainage -Unusual pain or calf pain -Increased vaginal bleeding -Painful or difficulty urinating -Feelings of extreme sadness or anxiety after 2 weeks Goals to Promote Your Health * To prevent worsening of your condition and complications * To maintain your health at the optimal level Directions to Meet Your Goals Take your medications as prescribed Follow your dietary instruction Follow activity as directed Ensure plenty of rest for recovery Drink fluids for hydration Keep your appointments as scheduled Take your immunizations and boosters as scheduled If your symptoms worsen call your PCP, if no PCP go to Urgent Care Center or Emergency Room Smoking is Dangerous to Your Health. Avoid second hand smoke Call the 24-hour crisis hotline for domestic abuse at Radha Maravilla MD May 09, 2017 13:55
[2017-05-09 17:00] VITALS: BP 121/80
[2017-05-09] MEDS: DOCUSATE SODIUM 50 MG/SENNA 8.6 MG TAB PO PRN (22:55)
[2017-05-09] MEDS: ACETAMINOPHEN 325 MG TAB PO PRN (22:57)
[2017-05-09 23:00] VITALS: BP 126/82; PULSE 87; RESP 20
[2017-05-10] MEDS: ACETAMINOPHEN 325 MG TAB PO PRN (07:35)
[2017-05-10] MEDS: IBUPROFEN 600 MG TAB PO PRN (07:35)
[2017-05-10 07:40] VITALS: BP 111/73; PULSE 70; RESP 16; TEMP 97.8
--- NOTE | 2017-05-10 09:49 | HHI.OB ---
Subjective Post Day: 2 Objective Vitals/I&O Vital Signs Date Time Temp Pulse Resp B/P (MAP) Pulse Ox O2 Delivery O2 Flow Rate FiO2 05/10/17 07:40 97.8 70 16 111/73 (86) 05/09/17 23:00 87 20 126/82 (97) 05/09/17 17:00 121/80 (94) Objective Remarks GENERAL: Well-nourished, well-developed patient. CARDIOVASCULAR: Regular rate and rhythm without murmurs, gallops, or rubs. RESPIRATORY: Breath sounds equal bilaterally. No accessory muscle use. ABDOMEN/GI: Abdomen soft, non-tender. Fundus: Firm, non-tender at umbilicus. GENITOURINARY: Light to moderate bleeding. EXTREMITIES: No cyanosis or edema, non-tender, without signs of DVT. Medications and IVs Current Medications Medications (Trade) Dose Ordered Sig/Dany Route Start Time Stop Time Status Last Admin (NS Flush) 2 ml BID IV FLUSH 05/08/17 11:00 (NS Flush) 2 ml UNSCH PRN IV FLUSH 05/08/17 09:30 (Tylenol) 650 mg Q4H PRN PO 05/08/17 09:30 05/10/17 07:35 (Motrin) 600 mg Q6H PRN PO 05/08/17 09:30 05/10/17 07:35 (Percocet 5-325 Mg) 1 tab Q4H PRN PO 05/08/17 09:30 05/09/17 15:29 (Percocet 5-325 Mg) 2 tab Q4H PRN PO 05/08/17 09:30 (Americaine 20% Top Spr) 1 spray Q4H PRN TOPICAL 05/08/17 09:30 (Tucks Pads) 1 applic QID PRN TOPICAL 05/08/17 09:30 (Radha-Colace) 2 tab Q12H PRN PO 05/08/17 09:30 05/09/17 22:55 (Ambien) 5 mg HS PRN PO 05/08/17 09:30 05/09/17 22:55 (Mag-Al Plus Susp Liq) 15 ml Q8H PRN PO 05/08/17 09:30 (Zofran Odt) 4 mg Q6H PRN PO 05/08/17 09:30 Assessment/Plan Assessment and Plan POD#2 Doing well pain well managed with oral pain medication bottle feeding, bonding well with infant routine care Discharge Planning dc home today Chelsea Larios May 10, 2017 09:49
--- NOTE | 2017-05-10 09:53 | HHI.DS ---
Admission Date May 08, 2017 at 02:42 Discharge Date: May 10, 2017 Admitting Diagnosis 40 weeks gestation gbs + contractions Diagnosis: Delivery Date: May 08, 2017 Vaginal Delivery: Normal : Male Brief History 39 6/7 weeks gesttion gbs + labor Hospital Course routine Pt Condition on Discharge: Good Discharge Disposition: Discharge Home Discharge Instructions Diet Instructions: As Tolerated, No Restrictions Additional Diet Instructions: Drink at least 8 - 16 oz bottles of water a day Activities You Can Perform: Shower Only-No Bath, Sitz Bath Activities to Avoid: Lifting/Bending, Sexual Activity Additional Activity Instruc.: No driving until off pain medications Do not lift anything heavier than your baby in an carrier Follow up Referrals: SHANK BONER - 2 Weeks @ [facility]'s [place] New Medications: Ibuprofen (Ibuprofen) 600 Mg Tab 600 MG PO Q6H PRN for CRAMPING, #30 TAB Oxycodone-Acetaminophen (Oxycodone-Acetaminophen) 5-325 mg Tab 1 TAB PO Q4H PRN for moderate, #12 TAB Continued Medications: Rmcoyrvzsr-Gkysoekrbtgna-Rcfficux (Fioricet) 50-300-40 Mg Cap 1 CAP PO Q6H PRN for HEADACHE, #30 CAP 0 Refills Vit-Ferrous Fumarate () 1 Tab Tab 1 TAB PO DAILY for Nutritional Supplement, #30 TAB 0 Refills Discontinued Medications: Promethazine (Phenergan) 25 Mg Tablet 25 MG PO Q6H PRN for NAUSEA OR VOMITING, #30 TAB 0 Refills Chelsea Larios May 10, 2017 09:53
--- NOTE | 2017-05-10 09:53 | HHI.DS ---
Admission Date May 08, 2017 at 02:42 Discharge Date: May 10, 2017 Admitting Diagnosis 40 weeks gestation gbs + contractions Diagnosis: Delivery Date: May 08, 2017 Vaginal Delivery: Normal : Male Brief History 39 6/7 weeks gesttion gbs + labor Hospital Course routine Pt Condition on Discharge: Good Discharge Disposition: Discharge Home Discharge Instructions Diet Instructions: As Tolerated, No Restrictions Additional Diet Instructions: Drink at least 8 - 16 oz bottles of water a day Activities You Can Perform: Shower Only-No Bath, Sitz Bath Activities to Avoid: Lifting/Bending, Sexual Activity Additional Activity Instruc.: No driving until off pain medications Do not lift anything heavier than your baby in an carrier Follow up Referrals: MECHANIC ASSISTANT - 2 Weeks @ [facility]'s [place] New Medications: Ibuprofen (Ibuprofen) 600 Mg Tab 600 MG PO Q6H PRN for CRAMPING, #30 TAB Oxycodone-Acetaminophen (Oxycodone-Acetaminophen) 5-325 mg Tab 1 TAB PO Q4H PRN for moderate, #12 TAB Continued Medications: Efrhmqvyoj-Zaarivbtajnes-Rxpikqjo (Fioricet) 50-300-40 Mg Cap 1 CAP PO Q6H PRN for HEADACHE, #30 CAP 0 Refills Vit-Ferrous Fumarate () 1 Tab Tab 1 TAB PO DAILY for Nutritional Supplement, #30 TAB 0 Refills Discontinued Medications: Promethazine (Phenergan) 25 Mg Tablet 25 MG PO Q6H PRN for NAUSEA OR VOMITING, #30 TAB 0 Refills Chelsea Larios May 10, 2017 09:53
--- NOTE | 2017-05-10 09:53 | HHI.DS ---
Admission Date May 08, 2017 at 02:42 Discharge Date: May 10, 2017 Admitting Diagnosis 40 weeks gestation gbs + contractions Diagnosis: Delivery Date: May 08, 2017 Vaginal Delivery: Normal : Male Brief History 39 6/7 weeks gesttion gbs + labor Hospital Course routine Pt Condition on Discharge: Good Discharge Disposition: Discharge Home Discharge Instructions Diet Instructions: As Tolerated, No Restrictions Additional Diet Instructions: Drink at least 8 - 16 oz bottles of water a day Activities You Can Perform: Shower Only-No Bath, Sitz Bath Activities to Avoid: Lifting/Bending, Sexual Activity Additional Activity Instruc.: No driving until off pain medications Do not lift anything heavier than your baby in an carrier Follow up Referrals: LINDERMAN OPERATOR - 2 Weeks @ [facility]'s [place] New Medications: Ibuprofen (Ibuprofen) 600 Mg Tab 600 MG PO Q6H PRN for CRAMPING, #30 TAB Oxycodone-Acetaminophen (Oxycodone-Acetaminophen) 5-325 mg Tab 1 TAB PO Q4H PRN for moderate, #12 TAB Continued Medications: Bbzypkssko-Rxfgsxsrwzfxx-Mnlqkuws (Fioricet) 50-300-40 Mg Cap 1 CAP PO Q6H PRN for HEADACHE, #30 CAP 0 Refills Vit-Ferrous Fumarate () 1 Tab Tab 1 TAB PO DAILY for Nutritional Supplement, #30 TAB 0 Refills Discontinued Medications: Promethazine (Phenergan) 25 Mg Tablet 25 MG PO Q6H PRN for NAUSEA OR VOMITING, #30 TAB 0 Refills Chelsea Larios May 10, 2017 09:53
== END 2017-05-10 11:26 | disposition home or self-care (01) | DRG 775 ==
LOC: HOBED 02:22 → H2EA 02:42 → H1EA 11:50
PROVIDERS: ADMIT Obstetrics & Gynecology; ATTEND Obstetrics & Gynecology
PROC: 10E0XZZ Delivery of Products of Conception, External Approach (ICD-10-PCS; principal; 2017-05-08)
PROC: 00HU33Z Insertion of Infusion Device into Spinal Canal, Percutaneous Approach (ICD-10-PCS; 2017-05-08)
PROC: 3E0R3BZ Introduction of Anesthetic Agent into Spinal Canal, Percutaneous Approach (ICD-10-PCS; 2017-05-08)
DX: O48.0 Post-term pregnancy (principal); O99.824 Streptococcus B carrier state complicating childbirth; Z37.0 Single live birth; Z3A.40 40 weeks gestation of pregnancy; O69.81X0 Labor and delivery complicated by cord around neck, without compression, not applicable or unspecified
CPT/HCPCS: 80307; 81001; 85025; 86900; 86901; 90715; J2540; J2590; J7120